=== PATIENT | female | born 1940 ===

== ENCOUNTER 2016-08-26 09:37 | Observation (INO) | payer MEDICARE, OTHER ==
[2016-08-26] MEDS ORDERED: Sodium Chloride 0.9% 1,000 ML IV ONE (10:03)
--- NOTE | 2016-08-26 10:07 | C.PDOC ---
History Of Present Illness Patient is a 75 y/o female, whose PMHx includes vertigo, asthma, and hypothyroidism, that presents to the ED for evaluation of dizziness for the last 25 days. Patient also reports 1 episode of syncope this morning. As per , patient was comfortably sitting on the chair, eating breakfast when she suddenly became unconscious for a few minutes. denies any fall, or injury, and states he immediately called EMS. Patient is able to recall details leading up to the syncope. Otherwise, patient denies any headache, extremity weakness/numbness, visual changes, chest pain, shortness of breath, or any other associated symptoms at this time. Time Seen by Provider: 08/26/16 10:01 Chief Complaint (Nursing): Syncope History Per: Patient History/Exam Limitations: no limitations Onset/Duration Of Symptoms: Days (25) Current Symptoms Are (Timing): Still Present Activity At Onset Of Symptoms: Sitting Fall Associated With With Symptoms: No Severity: None Pain Scale Rating Of: 0 Recent travel outside of the [place]: No Additional History Per: Family () Past Medical History Reviewed: Historical Data, Nursing Documentation, Vital Signs Vital Signs: Last Vital Signs Temp 98.1 F 08/26/16 09:54 Pulse 88 08/26/16 09:54 Resp 23 08/26/16 09:54 BP 139/75 08/26/16 09:54 Pulse Ox 96 08/26/16 11:55 - Medical History PMH: Asthma, Hypothyroidism Family History: States: Unknown Family Hx - Social History Hx Tobacco Use: No Hx Alcohol Use: No Hx Substance Use: No - Immunization History Hx Influenza Vaccination: No Hx Pneumococcal Vaccination: No Review Of Systems Except As Marked, All Systems Reviewed And Found Negative. Constitutional: Negative for: Fever, Chills Eyes: Negative for: Vision Change Cardiovascular: Negative for: Chest Pain, Palpitations Respiratory: Negative for: Shortness of Breath Neurological: Positive for: Dizziness. Negative for: Weakness, Numbness, Headache Physical Exam - Physical Exam Appears: Non-toxic, No Acute Distress Skin: Normal Color, Warm, Dry Head: Atraumatic, Normacephalic Eye(s): bilateral: Normal Inspection, PERRL, EOMI, Other (no nystagmus) Throat: Normal, No Erythema, No Exudate Neck: Normal ROM, Supple Chest: Symmetrical, No Tenderness Cardiovascular: Rhythm Regular Respiratory: Normal Breath Sounds, No Rales, No Rhonchi, No Wheezing Gastrointestinal/Abdominal: Soft, No Tenderness Extremity: Bilateral: Normal Color And Temperature, Normal ROM Pulses: Left Radial: Normal, Right Radial: Normal Neurological/Psych: Oriented x3, Normal Speech, Normal Cognition, Normal Motor ( normal strength), Normal Sensation, Normal Reflexes, Other (no sensory deficits , neuro intact) ED Course And Treatment - Laboratory Results Result Diagrams: 08/26/16 10:22 08/26/16 10:22 Lab Interpretation: No Acute Changes ECG: Interpreted By Me, Viewed By Me (and DR Rubio) ECG Rhythm: Sinus Rhythm ECG Interpretation: No Acute Changes Interpretation Of ECG: NS at 91 bpm with slight left axis deviation, no ischemic changes Rate From EC O2 Sat by Pulse Oximetry: 96 (on RA) Pulse Ox Interpretation: Normal - CT Scan/US Head CT Other Rad Studies (CT/US): Read By Radiologist, Radiology Report Reviewed CT/US Interpretation: FINDINGS: HEMORRHAGE: No acute parenchymal, subarachnoid or extra-axial hemorrhage. . BRAIN: Mild chronic periventricular white matter ischemic changes most pronounced and conspicuous on the left compared to the right. In addition, there are scattered chronic appearing subcortical ischemic changes as well. VENTRICLES: Mild generalized volume loss. CALVARIUM: No acute calvarial fractures. PARANASAL SINUSES: Mild mucoperiosteal inflammatory changes noted within the ethmoid air complex extending superiorly into the inferior aspect of the frontal sinus. Old bilateral nasal bone fracture deformities are present. MASTOID AIR CELLS: There is partial opacification of several left inferior mastoid air cells. OTHER FINDINGS: None. IMPRESSION: No acute intracranial hemorrhage. Mild chronic periventricular as well as scattered subcortical white matter ischemic changes. Mild generalized volume loss. Progress Note: Labs, Head CT, EKG ordered and reviewed. Patient was treated with IV fluids, and Reglan IVP. Medical Decision Making Medical Decision Makin y.o female with dizziness and syncope Labs and EKG reviewed CT shows no acute intracranial hemorrhage. Patient reevaluated and remains afebrile in no acute distress. She reports no change in her symptoms, she feels dizzy with certain movements and now feels weak to walk. Will call primary for observation admission. Dr Lawrence admits to hospitalist, will page them. [id number] Hernandez who accepts patient to service and requests orthostatic vital signs. Disposition - Disposition Disposition: HOSPITALIZED Disposition Time: 11:54 Condition: FAIR - POA Present On Arrival: None - Clinical Impression Clinical Impression: Vertigo, Syncope - PA / COUNCILPERSON / Resident Statement MD/DO has reviewed & agrees with the documentation as recorded. - Scribe Statement The provider has reviewed the documentation as recorded by the Scribe Duane Marie All medical record entries made by the Karinaibe were at my direction and personally dictated by me. I have reviewed the chart and agree that the record accurately reflects my personal performance of the history, physical exam, medical decision making, and the department course for this patient. I have also personally directed, reviewed, and agree with the discharge instructions and disposition. Decision To Admit - Pt Status Changed To: Hospital Disposition Of: Observation - . Bed Request Type: Telemetry Admitting Physician: Kayla Hernandez Patient Diagnosis: Vertigo, Syncope
[2016-08-26] MEDS ORDERED: Sodium Chloride 0.9% 1,000 ML ONE (10:10)
[2016-08-26 10:25] LABS: BASO # 0.1 K/uL (0.0-0.2); BASO % 1.1 % (0.0-2.0); EOS # 0.4 K/uL (0.0-0.7); EOS % 6.2 % (0.0-4.0); HEMATOCRIT 39.8 % (34.0-47.0); LYMPH # 1.7 K/uL (1.0-4.3); LYMPH % 27.7 % (20.0-40.0); MEAN CORPUSCULAR HEMOGLOBIN 30.6 pg (27.0-31.0); MEAN CORPUSCULAR HGB CONC 33.7 g/dL (33.0-37.0); MONO # 0.6 K/uL (0.0-0.8); MONO % 9.3 % (0.0-10.0); RED CELL DISTRIBUTION WIDTH 14.9 % (11.5-14.5); WHITE BLOOD COUNT 6.3 K/uL (4.8-10.8)
[2016-08-26 10:32] LABS: MEAN CELL VOLUME 90.7 fL (81.0-99.0)
[2016-08-26 10:44] LABS: CHLORIDE 100 mmol/L (98-107); POTASSIUM 4.2 mmol/L (3.6-5.2); SODIUM 142 mmol/L (132-148)
[2016-08-26 10:46] LABS: GFR AFRICAN-AMERICAN > 60
[2016-08-26 10:47] LABS: ALB/GLOB RATIO 1.2 (1.0-2.1); ALKALINE PHOSPHATASE 75 U/L (38-126); ALT/SGPT 25 U/L (9-52); AST/SGOT 28 U/L (14-36); BILIRUBIN,TOTAL 0.7 mg/dL (0.2-1.3); BLOOD UREA NITROGEN 10 mg/dL (7-17); CALCIUM 8.7 mg/dl (8.6-10.4); CARBON DIOXIDE 27 mmol/L (22-30); GLUCOSE,RANDOM 78 mg/dL (65-105); INR 1.1; TOTAL PROTEIN 7.3 g/dL (6.3-8.3)
[2016-08-26 11:19] LABS: THYROID STIMULATING HORMONE 3.53 mIU/L (0.46-4.68)
--- NOTE | 2016-08-26 11:32 | CT ---
PROCEDURE: CT HEAD WITHOUT CONTRAST. HISTORY: dizziness and syncope COMPARISON: None available. TECHNIQUE: Axial computed tomography images were obtained through the head/brain without intravenous contrast. Radiation dose: Total exam DLP = 870.30 mGy-cm. FINDINGS: HEMORRHAGE: No acute parenchymal, subarachnoid or extra-axial hemorrhage. . BRAIN: Mild chronic periventricular white matter ischemic changes most pronounced and conspicuous on the left compared to the right. In addition, there are scattered chronic appearing subcortical ischemic changes as well VENTRICLES: Mild generalized volume loss. CALVARIUM: No acute calvarial fractures. PARANASAL SINUSES: Mild mucoperiosteal inflammatory changes noted within the ethmoid air complex extending superiorly into the inferior aspect of the frontal sinus. Old bilateral nasal bone fracture deformities are present. MASTOID AIR CELLS: There is partial opacification of several left inferior mastoid air cells. OTHER FINDINGS: None. IMPRESSION: No acute intracranial hemorrhage. Mild chronic periventricular as well as scattered subcortical white matter ischemic changes. Mild generalized volume loss.
[2016-08-26 12:07] LABS: RBC URINE 1 /hpf (0-3); URINE BILIRUBIN NEGATIVE (NEGATIVE); URINE BLOOD NEGATIVE (NEGATIVE); URINE COLOR Straw (YELLOW); URINE GLUCOSE (UA) NORMAL (Normal); URINE KETONE NEGATIVE (NEGATIVE); URINE LEUKOCYTE ESTERASE NEG Leu/uL (Negative); URINE PROTEIN NEGATIVE (NEGATIVE); URINE UROBILINOGEN NORMAL mg/dL (0.2-1.0); WBC URINE 1 /hpf (0-5)
--- NOTE | 2016-08-26 16:54 | RAD ---
HISTORY: dizziness, syncope COMPARISON: No prior. FINDINGS: LUNGS: Moderate elevation right hemidiaphragm possibly due to eventration however subpulmonic effusion with atelectasis of must be excluded. PLEURA: No pneumothorax apparent. CARDIOVASCULAR: Heart size within range of normal. . OSSEOUS STRUCTURES: No significant abnormalities. VISUALIZED UPPER ABDOMEN: Normal. OTHER FINDINGS: None. IMPRESSION: Moderate elevation right hemidiaphragm could be due to a eventration however possibility of subpulmonic effusion and atelectasis should be excluded. Mild left basilar atelectasis
--- NOTE | 2016-08-26 16:54 | CP.PCM.HP ---
<Khadar Mata - Last Filed: 08/26/16 22:46> History of Present Illness - History of Present Illness History of Present Illness: 75F with pmh of vertigo and asthma presents to the ED for a syncopal episode that occurred earlier when she was eating breakfast with her around 10am. After she had prepared the meal, she sat down. According to her , her head went down and she lost consciousness. The next thing she remembers was being evaluated by EMS. She was then brought to the hospital. Her vertigo was first diagnosed 4 years ago and she has recently been having more episodes. She had her second episode approximately 1 year ago, her third 22 days ago and currently her fourth episode today. She has been prescribed Meclizine with relief. Currently, she complains of mild dizziness, blurry vision, and pain behind her eyes. She denies fever, chills, chest pain, difficulty breathing, nausea, vomiting, diarrhea. PMD: Evelyn PMH: Vertigo and Asthma FH: sig for heart disease SH: -lives with -sick 1 week ago -Tob: denies -Alc: denies -Drugs: denies Present on Admission - Present on Admission Any Indicators Present on Admission: No Review of Systems - Constitutional Constitutional: Headache. absent: Fever - EENT Eyes: Blurred Vision, Change in Vision Ears: absent: Decreased Hearing - Cardiovascular Cardiovascular: absent: Chest Pain, Chest Pain at Rest, Dyspnea - Respiratory Respiratory: absent: Dyspnea, Hemoptysis, Dyspnea on Exertion - Gastrointestinal Gastrointestinal: absent: Abdominal Pain, Diarrhea, Nausea, Vomiting - Genitourinary Genitourinary: absent: Dysuria, Hematuria - Musculoskeletal Musculoskeletal: Back Pain, Neck Pain - Integumentary Integumentary: absent: Rash, Wounds - Neurological Neurological: Dizziness, Headaches Past Patient History - Past Medical History & Family History Past Medical History?: Yes Pertinent Family History: sig for heart disease - Past Social History Smoking Status: Never Smoked Chewing Tobacco Use: No Cigar Use: No Alcohol: None Drugs: Denies Home Situation {Lives}: With Family - CARDIAC Hx Cardiac Disorders: No - PULMONARY Hx Respiratory Disorders: Yes Hx Asthma: Yes - NEUROLOGICAL Hx Neurological Disorder: Yes Hx Vertigo: Yes Other/Comment: Goes to ENT Dr. Savage has tilt table test done. - HEENT Hx HEENT Problems: Yes Other/Comment: Vertigo - RENAL Hx Chronic Kidney Disease: No - ENDOCRINE/METABOLIC Hx Endocrine Disorders: Yes Hx Hypothyroidism: Yes - HEMATOLOGICAL/ONCOLOGICAL Hx Blood Disorders: No - INTEGUMENTARY Hx Dermatological Problems: No - MUSCULOSKELETAL/RHEUMATOLOGICAL Hx Musculoskeletal Disorders: No Hx Falls: No - GASTROINTESTINAL Hx Gastrointestinal Disorders: No - GENITOURINARY/GYNECOLOGICAL Hx Genitourinary Disorders: No - PSYCHIATRIC Hx Psychophysiologic Disorder: No Hx Substance Use: No - SURGICAL HISTORY Hx Surgeries: Yes Hx Cholecystectomy: Yes - ANESTHESIA Hx Anesthesia: Yes Hx Anesthesia Reactions: No Meds Allergies/Adverse Reactions: Allergies Allergy/AdvReac Type Severity Reaction Status Date / Time Unobtainable Allergy Unverified 07/31/14 09:04 Physical Exam - Constitutional Appears: Non-toxic, No Acute Distress - Head Exam Head Exam: ATRAUMATIC, NORMOCEPHALIC - Eye Exam Eye Exam: EOMI Pupil Exam: NORMAL ACCOMODATION, PERRL - ENT Exam ENT Exam: Mucous Membranes Moist - Neck Exam Neck exam: Positive for: Normal Inspection - Respiratory Exam Respiratory Exam: Wheezes (ins/exp), NORMAL BREATHING PATTERN - Cardiovascular Exam Cardiovascular Exam: REGULAR RHYTHM, RRR, +S1, +S2. absent: JVD - GI/Abdominal Exam GI & Abdominal Exam: Normal Bowel Sounds, Soft. absent: Tenderness - Extremities Exam Extremities exam: Positive for: full ROM, normal inspection. Negative for: joint swelling - Back Exam Back exam: NORMAL INSPECTION. absent: CVA tenderness (L), CVA tenderness (R), paraspinal tenderness, rash noted - Neurological Exam Neurological exam: Alert, CN II-XII Intact, Oriented x3 - Psychiatric Exam Psychiatric exam: Normal Affect, Normal Mood - Skin Skin Exam: Dry, Intact, Normal Color, Warm Results - Vital Signs Recent Vital Signs: Last Vital Signs Temp 98.0 F 08/26/16 16:00 Pulse 82 08/26/16 16:00 Resp 20 08/26/16 16:00 BP 124/72 08/26/16 16:00 Pulse Ox 96 08/26/16 16:00 - Labs Result Diagrams: 08/26/16 10:22 08/26/16 10:22 Assessment & Plan - Assessment and Plan (Free Text) Assessment: 75F with pmh presents complaining of syncope and headache. Cardiac vs vaso- vagal vs hypoglycemic. Plan: Syncope -Orthostatics -Echocardiogram -Doppler Carotid Stenosis -Monitor Sugars -IV NS 75ml/hr PPX -GI pepcid -DVT SCD's Dispo Reg diet PT Eval - Date & Time Date: 08/26/16 Time: 05:15 <Juve Najera - Last Filed: 09/18/16 22:24> Results - Vital Signs Recent Vital Signs: Last Vital Signs Temp 97.3 F L 08/29/16 12:04 Pulse 91 H 08/29/16 12:35 Resp 20 08/29/16 07:45 BP 137/75 08/29/16 07:45 Pulse Ox 95 08/29/16 07:45 - Labs Result Diagrams: 08/29/16 06:00 08/29/16 06:00 Attending/Attestation - Attestation I have personally seen and examined this patient.: Yes I have fully participated in the care of the patient.: Yes I have reviewed all pertinent clinical information: Yes
[2016-08-26] MEDS: Sodium Chloride 0.9% 1,000 ML IV SCH (18:48)
[2016-08-27] MEDS ORDERED: Albuterol-Ipratrop 3 mg / 0.5 (3 ml) UD INH PRN (07:51)
[2016-08-27 08:24] LABS: BASO # 0.1 K/uL (0.0-0.2); BASO % 1.1 % (0.0-2.0); EOS # 0.5 K/uL (0.0-0.7); EOS % 7.5 % (0.0-4.0); HEMATOCRIT 39.4 % (34.0-47.0); LYMPH # 2.3 K/uL (1.0-4.3); LYMPH % 36.9 % (20.0-40.0); MEAN CELL VOLUME 91.2 fL (81.0-99.0); MEAN CORPUSCULAR HEMOGLOBIN 31.1 pg (27.0-31.0); MEAN CORPUSCULAR HGB CONC 34.1 g/dL (33.0-37.0); MEAN PLATELET VOLUME 7.9 fL (7.2-11.7); MONO # 0.6 K/uL (0.0-0.8); MONO % 9.5 % (0.0-10.0); NRBC % 0.5 % (0.0-2.0); RED CELL DISTRIBUTION WIDTH 14.6 % (11.5-14.5); WHITE BLOOD COUNT 6.2 K/uL (4.8-10.8)
[2016-08-27 08:31] LABS: CHLORIDE 100 mmol/L (98-107); SODIUM 140 mmol/L (132-148)
[2016-08-27 08:33] LABS: ALB/GLOB RATIO 1.1 (1.0-2.1); ALKALINE PHOSPHATASE 71 U/L (38-126); ALT/SGPT 19 U/L (9-52); AST/SGOT 24 U/L (14-36); BILIRUBIN,TOTAL 0.7 mg/dL (0.2-1.3); BLOOD UREA NITROGEN 10 mg/dL (7-17); CARBON DIOXIDE 26 mmol/L (22-30); GFR AFRICAN-AMERICAN > 60; GLUCOSE,RANDOM 68 mg/dL (65-105); PHOSPHOROUS 3.8 mg/dL (2.5-4.5)
[2016-08-27] MEDS: Sodium Chloride 0.9% 1,000 ML IV SCH ×2 (10:21→21:31)
--- NOTE | 2016-08-27 14:17 | CP.PCM.PN ---
<TheeLaverne - Last Filed: 08/27/16 14:15> Subjective - Date & Time of Evaluation Date of Evaluation: 08/27/16 Time of Evaluation: 08:15 - Subjective Subjective: PGY [address] Najera: Patient seen and examined at bedside this morning. She denied dizziness but stated that her head felt heavy. She states that she has had vertigo many time in the past 4 years. She states that this recent episode does not feel like her "regular vertigo". She denies all other complaints such as N/V, changes in vision, chest pain, SOB, abdominal pain, urinary complaints, numbness.tingling, weakness. Objective - Vital Signs/Intake and Output Vital Signs (last 24 hours): Temp Pulse Resp BP Pulse Ox 98.4 F 83 18 137/79 95 08/27/16 07:45 08/27/16 11:55 08/27/16 07:45 08/27/16 11:55 08/27/16 11:55 Intake and Output: 08/27/16 08/27/16 06:59 18:59 Intake Total 375 Output Total 200 Balance 175 - Medications Medications: Current Medications Acetaminophen (Tylenol 325mg Tab) 650 mg PO Q6 PRN PRN Reason: Pain, moderate (4-7) Last Admin: 08/26/16 18:06 Dose: 650 mg Albuterol/Ipratropium (Duoneb 3 Mg/0.5 Mg (3 Ml) Ud) 3 ml INH RQ6 PRN PRN Reason: Shortness of Breath Famotidine (Pepcid) 20 mg PO DAILY [facility] Last Admin: 08/27/16 10:20 Dose: 20 mg Heparin Sodium (Porcine) (Heparin) 5,000 units SC Q12 [facility] Last Admin: 08/27/16 10:20 Dose: 5,000 units Sodium Chloride (Sodium Chloride 0.9%) 1,000 mls @ 75 mls/hr IV .[id number] [facility] Last Admin: 08/27/16 10:21 Dose: 75 mls/hr Influenza Virus Vaccine (Afluria) 45 mcg IM .ONCE ONE Stop: 08/28/16 16:21 Fluticasone/Salmeterol (Advair Diskus 500/50) 1 puff INH RQ12 [facility] - Labs Labs: 08/27/16 07:52 08/27/16 07:52 PT 12.4 SECONDS (9.7-12.2) H 08/26/16 10:22 INR 1.1 08/26/16 10:22 APTT 34 SECONDS (21-34) 08/26/16 10:22 - Constitutional Appears: Non-toxic, No Acute Distress - Head Exam Head Exam: ATRAUMATIC, NORMAL INSPECTION - Eye Exam Eye Exam: EOMI, PERRL Pupil Exam: absent: NORMAL ACCOMODATION - ENT Exam ENT Exam: Mucous Membranes Moist - Neck Exam Neck Exam: absent: Full ROM - Respiratory Exam Respiratory Exam: Clear to Ausculation Bilateral, NORMAL BREATHING PATTERN. absent: Respiratory Distress - Cardiovascular Exam Cardiovascular Exam: REGULAR RHYTHM, +S1, +S2 - GI/Abdominal Exam GI & Abdominal Exam: Soft, Normal Bowel Sounds. absent: Distended, Firm, Guarding, Tenderness - Extremities Exam Extremities Exam: Calf Tenderness, Normal Inspection. absent: Full ROM, Pedal Edema - Back Exam Back Exam: NORMAL INSPECTION. absent: CVA tenderness (L), CVA tenderness (R), paraspinal tenderness - Neurological Exam Neurological Exam: Alert, Awake, CN II-XII Intact, Oriented x3 Neuro motor strength exam: Left Upper Extremity: 5, Right Upper Extremity: 5, Left Lower Extremity: 5, Right Lower Extremity: 5 Additional comments: No changes in vision changes, no focal deficits, no weakness - Psychiatric Exam Psychiatric exam: Normal Affect, Normal Mood - Skin Skin Exam: Dry, Intact, Normal Color, Warm Assessment and Plan - Assessment and Plan (Free Text) Assessment: Assessment: 75F with pmh presents complaining of syncope and headache. Cardiac vs vaso- vagal vs hypoglycemic. Plan: Syncope - Orthostatics: lying 163/77, sitting 141/73, standing 140/82 - f/u Echocardiogram - f/u Doppler Carotid Stenosis - f/u MRI brain w/wo contrast - IV NS 75ml/hr - Tylenol prn headache - On telemetry - CT head negative for acute pathology/bleed - UA wnl - Trop negative - EKG NSR at 91 bpm - f/u am labs Vertigo - f/u Neurology Dr. Cox, help appreciated Asthma - Duonebs prn SOB - Continue home med Advair 500/50 1 puff INH Q12 PPX - Pepcid 20mg PO daily - Heparin 5000 U SC Q12 - NS at 75 cc/hour - PT - Reg diet <Juve Najera - Last Filed: 09/18/16 22:29> Objective - Vital Signs/Intake and Output Vital Signs (last 24 hours): Temp Pulse Resp BP Pulse Ox 97.3 F L 91 H 20 137/75 95 08/29/16 12:04 08/29/16 12:35 08/29/16 07:45 08/29/16 07:45 08/29/16 07:45 - Labs Labs: 08/29/16 06:00 08/29/16 06:00 PT 12.4 SECONDS (9.7-12.2) H 08/26/16 10:22 INR 1.1 08/26/16 10:22 APTT 34 SECONDS (21-34) 08/26/16 10:22 Attending/Attestation - Attestation I have personally seen and examined this patient.: Yes I have fully participated in the care of the patient.: Yes I have reviewed all pertinent clinical information, including history, physical exam and plan: Yes
[2016-08-27 16:24] VITALS: RESP 20
[2016-08-27] MEDS ORDERED: Gadodiamide 287 MG/ML VIAL (15ML) IV ONE (18:05)
[2016-08-27] MEDS: Fluticasone-Salmeterol 500-50mcg Diskus INH SCH (19:16)
[2016-08-28] MEDS: Sodium Chloride 0.9% 1,000 ML IV SCH (02:35)
[2016-08-28 08:01] LABS: BASO # 0.1 K/uL (0.0-0.2); BASO % 1.2 % (0.0-2.0); EOS # 0.4 K/uL (0.0-0.7); EOS % 7.2 % (0.0-4.0); HEMATOCRIT 39.4 % (34.0-47.0); LYMPH # 2.4 K/uL (1.0-4.3); LYMPH % 39.1 % (20.0-40.0); MEAN CELL VOLUME 91.4 fL (81.0-99.0); MEAN CORPUSCULAR HEMOGLOBIN 30.6 pg (27.0-31.0); MEAN CORPUSCULAR HGB CONC 33.4 g/dL (33.0-37.0); MEAN PLATELET VOLUME 7.4 fL (7.2-11.7); MONO # 0.5 K/uL (0.0-0.8); MONO % 8.4 % (0.0-10.0); RED CELL DISTRIBUTION WIDTH 14.9 % (11.5-14.5); WHITE BLOOD COUNT 6.1 K/uL (4.8-10.8)
[2016-08-28 08:15] LABS: CHLORIDE 101 mmol/L (98-107)
[2016-08-28 08:16] LABS: SODIUM 141 mmol/L (132-148)
[2016-08-28 08:17] LABS: POTASSIUM 3.7 mmol/L (3.6-5.2)
[2016-08-28 08:18] LABS: CARBON DIOXIDE 27 mmol/L (22-30); GFR AFRICAN-AMERICAN > 60
[2016-08-28 08:19] LABS: ALB/GLOB RATIO 1.2 (1.0-2.1); ALKALINE PHOSPHATASE 80 U/L (38-126); ALT/SGPT 21 U/L (9-52); AST/SGOT 23 U/L (14-36); BILIRUBIN,TOTAL 0.7 mg/dL (0.2-1.3); BLOOD UREA NITROGEN 10 mg/dL (7-17); CALCIUM 8.4 mg/dl (8.6-10.4); GLUCOSE,RANDOM 73 mg/dL (65-105); PHOSPHOROUS 3.9 mg/dL (2.5-4.5)
[2016-08-28] MEDS: Fluticasone-Salmeterol 500-50mcg Diskus INH SCH ×2 (10:28→20:45)
--- NOTE | 2016-08-28 12:52 | VASCLAB ---
PROCEDURE: HISTORY: syncope COMPARISON: None available. TECHNIQUE: Grayscale and duplex Doppler evaluation of the cervical carotid and vertebral arteries were performed. The common carotid, carotid bifurcations and cervical Internal Carotid Artery (ICA) and proximal External Carotid Artery (ECA) were evaluated. The vertebral arteries were evaluated for gross patency and flow direction. Report prepared by Emil Saenz, BS, RVT FINDINGS: RIGHT CAROTID ARTERIES: 1. Common Carotid Artery: No significant focal plaque formation of the right common carotid artery. Maximum Peak Systolic velocity: 60 cm/sec: End-diastolic velocity 16 cm/sec. 2. Carotid Bifurcation: plaque formation. Maximum Peak Systolic velocity: 48 cm/sec: End-diastolic velocity 12 cm/sec. 3. Internal Carotid Artery: Plaque description: 3.1. Proximal Segment: Peak systolic velocity 59 cm/sec: End-diastolic velocity 19 cm/sec - % stenosis 0-15% 3.2. Middle Segment: Peak systolic velocity 92 cm/sec: End-diastolic velocity 33 cm/sec - % stenosis 0-15% 3.3. Distal Segment: Peak systolic velocity 100 cm/sec: End-diastolic velocity 33 cm/sec - % stenosis 0-15% 4. External Carotid Artery: No significant focal plaque formation. Peak systolic velocity 71 cm/sec 5. ICA/CCA Ratio: 1.7 LEFT CAROTID ARTERIES: 1. Common Carotid Artery: No significant focal plaque formation of the left common carotid artery. Maximum Peak Systolic velocity: 63 cm/sec: End-diastolic velocity 18 cm/sec. 2. Carotid Bifurcation: plaque formation. Maximum Peak Systolic velocity: 63 cm/sec: End-diastolic velocity 12 cm/sec. 3. Internal Carotid Artery: Plaque description: 3.1. Proximal Segment: Peak systolic velocity 57 cm/sec: End-diastolic velocity 18 cm/sec - % stenosis 0-15% 3.2. Middle Segment: Peak systolic velocity 82 cm/sec: End-diastolic velocity 26 cm/sec - % stenosis 0-15% 3.3. Distal Segment: Peak systolic velocity 56 cm/sec: End-diastolic velocity 19 cm/sec - % stenosis 0-15% 4. External Carotid Artery: No significant focal plaque formation. Peak systolic velocity 63 cm/sec 5. ICA/CCA Ratio: 1.3 VERTEBRAL ARTERIES: 1. Right Vertebral Artery: The right vertebral artery flow direction is antegrade. 2. Left Vertebral Artery: The left vertebral artery flow direction is antegrade. OTHER FINDINGS: 1. Right Brachial Blood pressure: 148 mmHg. 2. Left Brachial Blood pressure: 150 mmHg. IMPRESSION: RIGHT: Duplex scan does not suggest hemodynamically significant stenosis of the right extracranial carotid arteries. LEFT: Duplex scan does not suggest hemodynamically significant stenosis of the left extracranial carotid arteries.
--- NOTE | 2016-08-28 13:46 | MRI ---
PROCEDURE: MRI BRAIN WITH AND WITHOUT CONTRAST HISTORY: Vertigo, r/u cerebellar stroke COMPARISON: Noncontrast head CT from 08/26/2016 and MRI brain without contrast from 09/09/2014 TECHNIQUE: Multiplanar, multisequence MR images of the brain were obtained with and without intravenous contrast enhancement. 12 mL Omniscan was injected intravenously. FINDINGS: HEMORRHAGE: None DWI: No evidence of an acute or early subacute infarction. BRAIN PARENCHYMA: There are moderate chronic microangiopathic changes. There is no mass, mass effect or abnormal extra-axial fluid collection. Punctate T1 hyperintense areas in the right very frontal white matter likely represent slow flow in branches of development of venous malformation. The midline sagittal structures are normal. ENHANCEMENT: There is a large developmental venous malformation in the left paramedian frontal lobe draining into the superior sagittal sinus. There is no abnormal parenchymal or leptomeningeal enhancement. VENTRICLES: There is mild age-related global parenchymal volume loss and proportionate enlargement of the ventricles and cortical sulci. The left lateral ventricle is slightly larger than the right, an anatomic variant. CRANIUM: There is normal bone marrow signal pattern. ORBITS: Grossly unremarkable. PARANASAL SINUSES/MASTOIDS: There is mild mucosal thickening in the paranasal sinuses. There is a moderate left mastoid effusion. VASCULAR SYSTEM: There are normal signal voids in the larger intracranial arteries. OTHER FINDINGS: None . IMPRESSION: 1. No acute intracranial abnormality. 2. 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 3. Moderate chronic microangiopathic changes and mild age-related global parenchymal volume loss. A preliminary report was provided by [employer].
--- NOTE | 2016-08-28 14:38 | CP.PCM.PN ---
<Laverne Kingston - Last Filed: 08/28/16 17:02> Subjective - Date & Time of Evaluation Date of Evaluation: 08/28/16 Time of Evaluation: 08:30 - Subjective Subjective: PGY [address] Najera: Patient seen and examined at bedside this morning. She denied dizziness but stated that her head felt "hot". She denied headahe. She denies all other complaints such as N/V, changes in vision, chest pain, SOB, abdominal pain, urinary complaints, numbness/tingling, weakness. Objective - Vital Signs/Intake and Output Vital Signs (last 24 hours): Temp Pulse Resp BP Pulse Ox 97.7 F 71 20 148/73 95 08/28/16 07:14 08/28/16 12:46 08/28/16 07:14 08/28/16 07:14 08/28/16 07:14 Intake and Output: 08/28/16 08/28/16 06:59 18:59 Intake Total 1620 720 Output Total 150 Balance 1620 570 - Medications Medications: Current Medications Acetaminophen (Tylenol 325mg Tab) 650 mg PO Q6 PRN PRN Reason: Pain, moderate (4-7) Last Admin: 08/27/16 21:28 Dose: 650 mg Albuterol/Ipratropium (Duoneb 3 Mg/0.5 Mg (3 Ml) Ud) 3 ml INH RQ6 PRN PRN Reason: Shortness of Breath Last Admin: 08/27/16 19:17 Dose: 3 ml Clopidogrel Bisulfate (Plavix) 75 mg PO DAILY [facility] Last Admin: 08/28/16 09:35 Dose: 75 mg Famotidine (Pepcid) 20 mg PO DAILY [facility] Last Admin: 08/28/16 10:16 Dose: 20 mg Heparin Sodium (Porcine) (Heparin) 5,000 units SC Q12 [facility] Last Admin: 08/28/16 09:35 Dose: 5,000 units Sodium Chloride (Sodium Chloride 0.9%) 1,000 mls @ 75 mls/hr IV .[id number] [facility] Last Admin: 08/28/16 02:35 Dose: 75 mls/hr Influenza Virus Vaccine (Afluria) 45 mcg IM .ONCE ONE Stop: 08/28/16 16:21 Fluticasone/Salmeterol (Advair Diskus 500/50) 1 puff INH RQ12 [facility] Last Admin: 08/28/16 10:28 Dose: 1 puff - Labs Labs: 08/28/16 07:49 08/28/16 07:49 PT 12.4 SECONDS (9.7-12.2) H 08/26/16 10:22 INR 1.1 08/26/16 10:22 APTT 34 SECONDS (21-34) 08/26/16 10:22 - Constitutional Appears: Non-toxic, No Acute Distress - Head Exam Head Exam: ATRAUMATIC, NORMAL INSPECTION - Eye Exam Eye Exam: EOMI, Normal appearance, PERRL Pupil Exam: NORMAL ACCOMODATION - ENT Exam ENT Exam: Mucous Membranes Moist - Respiratory Exam Respiratory Exam: Clear to Ausculation Bilateral, NORMAL BREATHING PATTERN. absent: Accessory Muscle Use, Rales, Rhonchi, Wheezes, Respiratory Distress - Cardiovascular Exam Cardiovascular Exam: REGULAR RHYTHM, +S1, +S2. absent: Murmur - GI/Abdominal Exam GI & Abdominal Exam: Soft, Normal Bowel Sounds. absent: Distended, Firm, Guarding, Tenderness - Extremities Exam Extremities Exam: Normal Inspection. absent: Calf Tenderness, Pedal Edema - Back Exam Back Exam: NORMAL INSPECTION. absent: CVA tenderness (L), CVA tenderness (R), paraspinal tenderness - Neurological Exam Neurological Exam: Alert, Awake, CN II-XII Intact, Oriented x3 Neuro motor strength exam: Left Upper Extremity: 5, Right Upper Extremity: 5, Left Lower Extremity: 5, Right Lower Extremity: 5 - Psychiatric Exam Psychiatric exam: Normal Affect, Normal Mood - Skin Skin Exam: Dry, Intact, Normal Color, Warm Assessment and Plan - Assessment and Plan (Free Text) Assessment: Syncope - Orthostatics: lying 163/77, sitting 141/73, standing 140/82 - f/u Echocardiogram - Carotid Doppler Study- no disease - MRI brain - No acute intracranial abnormality. 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 Moderate chronic microangiophathic changes and mild age related global parenchymal volume loss. - IV NS 75ml/hr - Tylenol prn headache - On telemetry - CT head negative for acute pathology/bleed - UA wnl - Trop negative - EKG NSR at 91 bpm - f/u EEG - f/u am labs Vertigo - f/u Neurology Dr. Kenny, help appreciated - f/u recs Added Plavix 75 mg PO daily Asthma - Duonebs prn SOB - Continue home med Advair 500/50 1 puff INH Q12 PPX - Pepcid 20mg PO daily - Heparin 5000 U SC Q12 - PT - Reg diet <DaniaJuve - Last Filed: 09/18/16 22:35> Objective - Vital Signs/Intake and Output Vital Signs (last 24 hours): Temp Pulse Resp BP Pulse Ox 97.3 F L 91 H 20 137/75 95 08/29/16 12:04 08/29/16 12:35 08/29/16 07:45 08/29/16 07:45 08/29/16 07:45 - Labs Labs: 08/29/16 06:00 08/29/16 06:00 PT 12.4 SECONDS (9.7-12.2) H 08/26/16 10:22 INR 1.1 08/26/16 10:22 APTT 34 SECONDS (21-34) 08/26/16 10:22 Attending/Attestation - Attestation I have personally seen and examined this patient.: Yes I have fully participated in the care of the patient.: Yes I have reviewed all pertinent clinical information, including history, physical exam and plan: Yes
[2016-08-28] MEDS ORDERED: Influenza Virus Vaccine 45 mcg/0.5 ml Syr IM ONE (16:20)
[2016-08-29 06:36] LABS: CHLORIDE 101 mmol/L (98-107); SODIUM 141 mmol/L (132-148)
[2016-08-29 06:38] LABS: BILIRUBIN,TOTAL 0.5 mg/dL (0.2-1.3); CARBON DIOXIDE 27 mmol/L (22-30); GFR AFRICAN-AMERICAN > 60
[2016-08-29 06:39] LABS: ALB/GLOB RATIO 1.2 (1.0-2.1); ALKALINE PHOSPHATASE 92 U/L (38-126); ALT/SGPT 23 U/L (9-52); AST/SGOT 25 U/L (14-36); BLOOD UREA NITROGEN 13 mg/dL (7-17); CALCIUM 8.9 mg/dl (8.6-10.4); GLUCOSE,RANDOM 76 mg/dL (65-105); PHOSPHOROUS 4.3 mg/dL (2.5-4.5); TOTAL PROTEIN 7.2 g/dL (6.3-8.3)
[2016-08-29 06:47] LABS: BASO # 0.1 K/uL (0.0-0.2); BASO % 1.1 % (0.0-2.0); EOS # 0.4 K/uL (0.0-0.7); EOS % 6.4 % (0.0-4.0); HEMATOCRIT 40.8 % (34.0-47.0); LYMPH # 2.5 K/uL (1.0-4.3); LYMPH % 35.5 % (20.0-40.0); MEAN CELL VOLUME 90.7 fL (81.0-99.0); MEAN CORPUSCULAR HEMOGLOBIN 29.9 pg (27.0-31.0); MEAN PLATELET VOLUME 7.4 fL (7.2-11.7); MONO # 0.6 K/uL (0.0-0.8)
[2016-08-29 07:46] VITALS: BP 137/75; TEMP 97.3; O2SAT 95
--- NOTE | 2016-08-29 08:06 | CARD ---
APPROVED REPORT EKG Measurement Heart [id number] <Conclusion> Normal sinus rhythm Inferior infarct, age undetermined Abnormal ECG
--- NOTE | 2016-08-29 08:35 | CARD ---
APPROVED REPORT EXAM: Two-dimensional and M-mode echocardiogram with Doppler and color Doppler. Other Information Quality : GoodRhythm : NSR INDICATION Dizziness and Vertigo Diastolic Syncope M-Mode DIMENSIONS RVDd1.63 (2.1-3.2cm)Left Atrium (MM)3.68 (2.5-4.0cm) IVSd0.87 (0.7-1.1cm)Aortic Root3.09 (2.2-3.7cm) LVDd4.16 (4.0-5.6cm)Aortic Cusp Exc.1.84 (1.5-2.0cm) PWd1.15 (0.7-1.1cm)FS (%) 30 % LVDs2.92 (2.0-3.8cm)LVEF (%)58 (>50%) Aortic Valve AoV Peak Itwnwzre443.6cm/Jessica Peak GR.9mmHgAI P 1/2 Jvus232xt Mitral Valve MV E Bptmgmrc95.9cm/sMV A Kuybuuyp72.9cm/sE/A ratio1.0 TDI E/Lateral E'0.0E/Medial E'0.0 Tricuspid Valve TR Peak Rxduuakx421ac/sTR Peak Gr.3qsCyGZVY64puPx <Conclusion> Left ventricle: thickness: normal; size: normal; overall ejection fraction: 65%: diastolic filling pressures: normal Mitral valve: annulus: normal: leaflets: normal: excursion: normal; no significant trans-mitral gradient: No significant incompetence: left atrium: normal Aortic valve: leaflets: calcific thickening; excursion: normal; no significant trans-aortic gradient: mild incompetence: aortic root: normal Right sided Structures: Pulmonary valve: normal; no significant incompetence; Tricuspid valve: normal; no significant incompetence: Intra-cardiac hemodynamics: pulmonary systolic pressures: normal; central venous pressures: normal No pericardial effusion
--- NOTE | 2016-08-29 09:39 | CON ---
DATE: 08/28/2016 The patient's room #657, bed B. REASON FOR CONSULTATION: Dizziness. CHIEF COMPLAINT: The patient was brought into [facility] with 22 days history of dizziness with a change in mental status. HISTORY OF PRESENT ILLNESS: The patient is a 75-year-old right-handed female presenting with 22 days history of dizziness. The dizziness is somewhat different than before. Not associating with visual or bulbar dysfunction. Not associated with a headache. On Saturday, she noticed during breakfast time suddenly she could not recall what happened. All she remembers she became blurry and she could not remember what happened after that. It looks like home health aide called 911 and she was brought in to [facility] for further evaluation. PAST MEDICAL HISTORY: Asthma and hypothyroidism. PERSONAL HISTORY: Denies smoking or alcohol use. ALLERGIES: No known allergies. REVIEW OF SYSTEMS: As per H and P. MEDICATIONS: Advair, Afluria, DuoNeb, Pepcid, IV fluids and Tylenol. PHYSICAL EXAMINATION: VITAL SIGNS: Blood pressure 136/70 with mean arterial pressure of 97, respiratory rate 16, temperature afebrile. NECK: Supple. No carotid bruit. HEART: Sounds regular. CHEST: Fair air entry. EXTREMITIES: No edema in legs. NEUROLOGIC EXAMINATION: MENTAL STATUS: She is awake, alert, oriented to person, place, and time. Speech is clear. Naming, repetition, fluency, comprehension all within normal. CRANIAL NERVES: Visual field intact, pupil reactive to light. Extraocular movements are normal. No nystagmus. No facial sensory deficit. V1-V3 all intact. No facial asymmetry. Hearing is normal. Tongue is midline. Good gag. MOTOR: On outstretched hand with eyes closed, no drift noted. Power is symmetric on either side. DEEP TENDON REFLEXES: Biceps, brachioradialis, triceps 2+ Both knees are 1+. Both ankles are absent. Plantars are downgoing. COORDINATION: Aialbk-szfs-qjafkq test is mild dysmetria on both sides. GAIT: She was able to walk normal. Tandem is somewhat fair walking. CONCLUSION: Upon reviewing her history and neurological examination, the patient has been presenting with persistent vertigo. This could be ischemic process centrally versus vestibular neuronopathy. However, her change in mental status and retrograde amnesia is not explainable unless otherwise proved nonconvulsive seizures. WORKUP: CT of the head reviewed by me, no acute pathology noted. MRI of the brain without contrast: Normal. MRI brain with contrast: There is some enhancement of the cortical vein over the left frontal region. I doubt there is any significant importance. BLOOD WORKUP: WBC is 6.2, hemoglobin 13.4, hematocrit 39.4, platelet 265. Sodium 140, potassium 4.0, chloride 100, bicarbonate 26, BUN 10, creatinine 0.5 , GFR more than 60. TSH 3.53. T4 is 0.72. Urinalysis normal. RECOMMENDATIONS: 1. EEG is to be done prior to her discharge. 2. Plavix can be added for her prevention of further stroke process. 3. If patient is stable, patient can be discharged and should have followup with me as outpatient. Junito Cox MD cc: [id number] TT: 08/28/2016 12:38:18 Confirmation # [id number] Dictation # [id number] andrae RAMÍREZ
[2016-08-29] MEDS ORDERED: Pneumococcal 23-Valent Vaccine IM ONE (10:00)
[2016-08-29] MEDS: Fluticasone-Salmeterol 500-50mcg Diskus INH SCH (10:22)
[2016-08-29 12:36] VITALS: PULSE 91
--- NOTE | 2016-08-29 15:40 | CP.PCM.DIS ---
<Laverne Kingston - Last Filed: 08/29/16 15:34> Provider - Provider Date of Admission: 08/28/16 21:17 Attending physician: Juve Najera MD Primary care physician: Evelyn Consults: Destini Cox - Neurology Time Spent in preparation of Discharge (in minutes): 35 Hospital Course - Lab Results Lab Results: Most Recent Lab Values WBC 7.0 K/uL (4.8-10.8) 08/29/16 06:00 RBC 4.50 Mil/uL (3.80-5.20) 08/29/16 06:00 Hgb 13.4 g/dL (11.0-16.0) 08/29/16 06:00 Hct 40.8 % (34.0-47.0) 08/29/16 06:00 MCV 90.7 fL (81.0-99.0) 08/29/16 06:00 MCH 29.9 pg (27.0-31.0) 08/29/16 06:00 MCHC 33.0 g/dL (33.0-37.0) 08/29/16 06:00 RDW 15.0 % (11.5-14.5) H 08/29/16 06:00 Plt Count 255 K/uL (130-400) 08/29/16 06:00 MPV 7.4 fL (7.2-11.7) 08/29/16 06:00 Neut % (Auto) 48.0 % (50.0-75.0) L 08/29/16 06:00 Lymph % (Auto) 35.5 % (20.0-40.0) 08/29/16 06:00 Chase % (Auto) 9.0 % (0.0-10.0) 08/29/16 06:00 Eos % (Auto) 6.4 % (0.0-4.0) H 08/29/16 06:00 Baso % (Auto) 1.1 % (0.0-2.0) 08/29/16 06:00 Neut # 3.3 K/uL (1.8-7.0) 08/29/16 06:00 Lymph # 2.5 K/uL (1.0-4.3) 08/29/16 06:00 Chase # 0.6 K/uL (0.0-0.8) 08/29/16 06:00 Eos # 0.4 K/uL (0.0-0.7) 08/29/16 06:00 Baso # 0.1 K/uL (0.0-0.2) 08/29/16 06:00 PT 12.4 SECONDS (9.7-12.2) H 08/26/16 10:22 INR 1.1 08/26/16 10:22 APTT 34 SECONDS (21-34) 08/26/16 10:22 Sodium 141 mmol/L (132-148) 08/29/16 06:00 Potassium 4.0 mmol/L (3.6-5.2) 08/29/16 06:00 Chloride 101 mmol/L (98-107) 08/29/16 06:00 Carbon Dioxide 27 mmol/L (22-30) 08/29/16 06:00 Anion Gap 18 (10-20) 08/29/16 06:00 BUN 13 mg/dL (7-17) 08/29/16 06:00 Creatinine 0.6 MG/DL (0.7-1.2) L 08/29/16 06:00 Est GFR ( Amer) > 60 08/29/16 06:00 Est GFR (Non-Af Amer) > 60 08/29/16 06:00 Random Glucose 76 mg/dL (65-105) 08/29/16 06:00 Calcium 8.9 mg/dl (8.6-10.4) 08/29/16 06:00 Phosphorus 4.3 mg/dL (2.5-4.5) 08/29/16 06:00 Magnesium 2.0 mg/dL (1.6-2.3) 08/29/16 06:00 Total Bilirubin 0.5 mg/dL (0.2-1.3) 08/29/16 06:00 AST 25 U/L (14-36) 08/29/16 06:00 ALT 23 U/L (9-52) 08/29/16 06:00 Alkaline Phosphatase 92 U/L (38-126) 08/29/16 06:00 Total Creatine Kinase 131 U/L (30-135) 08/26/16 10:22 CK-MB (Mass) 2.71 ng/mL (0.0-3.38) 08/26/16 10:22 Troponin I, Quant < 0.0120 ng/mL (0.00-0.120) 08/26/16 10:22 Total Protein 7.2 g/dL (6.3-8.3) 08/29/16 06:00 Albumin 3.8 g/dL (3.5-5.0) 08/29/16 06:00 Globulin 3.3 gm/dL (2.2-3.9) 08/29/16 06:00 Albumin/Globulin Ratio 1.2 (1.0-2.1) 08/29/16 06:00 Free T4 0.72 ng/dL (0.78-2.19) L 08/26/16 10:22 TSH 3rd Generation 3.53 mIU/L (0.46-4.68) 08/26/16 10:22 Prolactin 14.2 ng/mL (3.0-18.9) 08/27/16 07:52 Urine Color Straw (YELLOW) 08/26/16 11:46 Urine Clarity Clear (Clear) 08/26/16 11:46 Urine pH 6.0 (5.0-8.0) 08/26/16 11:46 Ur Specific [place] 1.010 (1.003-1.030) 08/26/16 11:46 Urine Protein Negative mg/dL (NEGATIVE) 08/26/16 11:46 Urine Glucose (UA) Normal mg/dL (Normal) 08/26/16 11:46 Urine Ketones Negative mg/dL (NEGATIVE) 08/26/16 11:46 Urine Blood Negative (NEGATIVE) 08/26/16 11:46 Urine Nitrate Negative (NEGATIVE) 08/26/16 11:46 Urine Bilirubin Negative (NEGATIVE) 08/26/16 11:46 Urine Urobilinogen Normal mg/dL (0.2-1.0) 08/26/16 11:46 Ur Leukocyte Esterase Neg Andrade/uL (Negative) 08/26/16 11:46 Urine WBC (Auto) 1 /hpf (0-5) 08/26/16 11:46 Urine RBC (Auto) 1 /hpf (0-3) 08/26/16 11:46 Ur Squamous Epith Cells < 1 /hpf (0-5) 08/26/16 11:46 - Hospital Course Hospital Course: On admission: 75F with pmh of vertigo and asthma presents to the ED for a syncopal episode that occurred earlier when she was eating breakfast with her around 10am. After she had prepared the meal, she sat down. According to her , her head went down and she lost consciousness. The next thing she remembers was being evaluated by EMS. She was then brought to the hospital. Her vertigo was first diagnosed 4 years ago and she has recently been having more episodes. She had her second episode approximately 1 year ago, her third 22 days ago and currently her fourth episode today. She has been prescribed Meclizine with relief. Currently, she complains of mild dizziness, blurry vision , and pain behind her eyes. She denies fever, chills, chest pain, difficulty breathing, nausea, vomiting, diarrhea. During hospital stay: Patient was admitted for telemetry monitoring. Neurology was consulted. Orthostatics were wnl. Echocardiogram showed EF 65% with otherwise normal findings. Carotid Doppler Study- no disease. CT scan of the head showed no evidence of bleed. MRI brain showed no acute intracranial abnormality. 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 Moderate chronic microangiophathic changes and mild age related global parenchymal volume loss. Dr. Cox started the patient on Plavix 75 mg PO daily. Cardiac enzymes were normal. Patient was not dizzy while in the hospital. Patient was given breathing treatments and continued on her home advair for her asthma. She was not wheezing during her stay. Patient stable for discharge home per Neurology. Patient is to follow up with Dr. Cox (neurology) for post hospital care and for the results of her EEG. Per Dr. Cox she is to take a new medication: Plavix 75 mg one by mouth daily. Patient is do resume all of her home medications. Patient to to also follow up with her primary care physician Dr. Rivas within one week of discharge. Patient is to return to the emergency room if symptoms return. All instructions explained to the patient and she agrees. Discharge Exam - Head Exam Head Exam: ATRAUMATIC, NORMAL INSPECTION - Eye Exam Eye Exam: EOMI, Normal appearance, PERRL Pupil Exam: NORMAL ACCOMODATION - ENT Exam ENT Exam: Mucous Membranes Moist - Respiratory Exam Respiratory Exam: Clear to PA & Lateral, NORMAL BREATHING PATTERN. absent: Accessory Muscle Use, Chest Wall Tenderness, Respiratory Distress - Cardiovascular Exam Cardiovascular Exam: REGULAR RHYTHM, +S1, +S2 - GI/Abdominal Exam GI & Abdominal Exam: Normal Bowel Sounds, Soft. absent: Distended, Firm, Guarding, Tenderness - Extremities Exam Extremities exam: normal inspection - Back Exam Back exam: NORMAL INSPECTION. absent: CVA tenderness (L), CVA tenderness (R), paraspinal tenderness - Neurological Exam Neurological exam: Alert, CN II-XII Intact, Oriented x3 - Psychiatric Exam Psychiatric exam: Normal Affect, Normal Mood - Skin Skin Exam: Dry, Intact, Normal Color, Warm Discharge Plan - Discharge Medications Prescriptions: Clopidogrel [Plavix] 75 mg PO DAILY #30 tab - Follow Up Plan Condition: FAIR Disposition: HOME/ ROUTINE Instructions: Clopidogrel (By mouth), Vertigo (DC), Syncope (DC) Additional Instructions: Patient stable for discharge home per Neurology. Patient is to follow up with Dr. Cox (neurology) for post hospital care and for the results of her EEG. Per Dr. Cox she is to take a new medication: Plavix 75 mg one by mouth daily. Patient is do resume all of her home medications. Patient to to also follow up with her primary care physician Dr. Rivas within one week of discharge. Patient is to return to the emergency room if symptoms return. All instructions explained to the patient and she agrees. Referrals: Junito Cox MD [Staff Provider] - <Juve Najera - Last Filed: 09/18/16 22:40> Provider - Provider Date of Admission: 08/28/16 21:17 Attending physician: Juve Najera MD Hospital Course - Lab Results Lab Results: Most Recent Lab Values WBC 7.0 K/uL (4.8-10.8) 08/29/16 06:00 RBC 4.50 Mil/uL (3.80-5.20) 08/29/16 06:00 Hgb 13.4 g/dL (11.0-16.0) 08/29/16 06:00 Hct 40.8 % (34.0-47.0) 08/29/16 06:00 MCV 90.7 fL (81.0-99.0) 08/29/16 06:00 MCH 29.9 pg (27.0-31.0) 08/29/16 06:00 MCHC 33.0 g/dL (33.0-37.0) 08/29/16 06:00 RDW 15.0 % (11.5-14.5) H 08/29/16 06:00 Plt Count 255 K/uL (130-400) 08/29/16 06:00 MPV 7.4 fL (7.2-11.7) 08/29/16 06:00 Neut % (Auto) 48.0 % (50.0-75.0) L 08/29/16 06:00 Lymph % (Auto) 35.5 % (20.0-40.0) 08/29/16 06:00 Chase % (Auto) 9.0 % (0.0-10.0) 08/29/16 06:00 Eos % (Auto) 6.4 % (0.0-4.0) H 08/29/16 06:00 Baso % (Auto) 1.1 % (0.0-2.0) 08/29/16 06:00 Neut # 3.3 K/uL (1.8-7.0) 08/29/16 06:00 Lymph # 2.5 K/uL (1.0-4.3) 08/29/16 06:00 Chase # 0.6 K/uL (0.0-0.8) 08/29/16 06:00 Eos # 0.4 K/uL (0.0-0.7) 08/29/16 06:00 Baso # 0.1 K/uL (0.0-0.2) 08/29/16 06:00 PT 12.4 SECONDS (9.7-12.2) H 08/26/16 10:22 INR 1.1 08/26/16 10:22 APTT 34 SECONDS (21-34) 08/26/16 10:22 Sodium 141 mmol/L (132-148) 08/29/16 06:00 Potassium 4.0 mmol/L (3.6-5.2) 08/29/16 06:00 Chloride 101 mmol/L (98-107) 08/29/16 06:00 Carbon Dioxide 27 mmol/L (22-30) 08/29/16 06:00 Anion Gap 18 (10-20) 08/29/16 06:00 BUN 13 mg/dL (7-17) 08/29/16 06:00 Creatinine 0.6 MG/DL (0.7-1.2) L 08/29/16 06:00 Est GFR ( Amer) > 60 08/29/16 06:00 Est GFR (Non-Af Amer) > 60 08/29/16 06:00 Random Glucose 76 mg/dL (65-105) 08/29/16 06:00 Calcium 8.9 mg/dl (8.6-10.4) 08/29/16 06:00 Phosphorus 4.3 mg/dL (2.5-4.5) 08/29/16 06:00 Magnesium 2.0 mg/dL (1.6-2.3) 08/29/16 06:00 Total Bilirubin 0.5 mg/dL (0.2-1.3) 08/29/16 06:00 AST 25 U/L (14-36) 08/29/16 06:00 ALT 23 U/L (9-52) 08/29/16 06:00 Alkaline Phosphatase 92 U/L (38-126) 08/29/16 06:00 Total Creatine Kinase 131 U/L (30-135) 08/26/16 10:22 CK-MB (Mass) 2.71 ng/mL (0.0-3.38) 08/26/16 10:22 Troponin I, Quant < 0.0120 ng/mL (0.00-0.120) 08/26/16 10:22 Total Protein 7.2 g/dL (6.3-8.3) 08/29/16 06:00 Albumin 3.8 g/dL (3.5-5.0) 08/29/16 06:00 Globulin 3.3 gm/dL (2.2-3.9) 08/29/16 06:00 Albumin/Globulin Ratio 1.2 (1.0-2.1) 08/29/16 06:00 Free T4 0.72 ng/dL (0.78-2.19) L 08/26/16 10:22 TSH 3rd Generation 3.53 mIU/L (0.46-4.68) 08/26/16 10:22 Prolactin 14.2 ng/mL (3.0-18.9) 08/27/16 07:52 Urine Color Straw (YELLOW) 08/26/16 11:46 Urine Clarity Clear (Clear) 08/26/16 11:46 Urine pH 6.0 (5.0-8.0) 08/26/16 11:46 Ur Specific [place] 1.010 (1.003-1.030) 08/26/16 11:46 Urine Protein Negative mg/dL (NEGATIVE) 08/26/16 11:46 Urine Glucose (UA) Normal mg/dL (Normal) 08/26/16 11:46 Urine Ketones Negative mg/dL (NEGATIVE) 08/26/16 11:46 Urine Blood Negative (NEGATIVE) 08/26/16 11:46 Urine Nitrate Negative (NEGATIVE) 08/26/16 11:46 Urine Bilirubin Negative (NEGATIVE) 08/26/16 11:46 Urine Urobilinogen Normal mg/dL (0.2-1.0) 08/26/16 11:46 Ur Leukocyte Esterase Neg Andrade/uL (Negative) 08/26/16 11:46 Urine WBC (Auto) 1 /hpf (0-5) 08/26/16 11:46 Urine RBC (Auto) 1 /hpf (0-3) 08/26/16 11:46 Ur Squamous Epith Cells < 1 /hpf (0-5) 08/26/16 11:46 Attending/Attestation - Attestation I have personally seen and examined this patient.: Yes I have fully participated in the care of the patient.: Yes I have reviewed all pertinent clinical information, including history, physical exam and plan: Yes
--- NOTE | 2016-08-30 10:08 | EEG ---
DATE: 08/28/2016 This is a 16-channel electroencephalogram of awake and drowsy adult. During the study, photic stimul ation was performed. Hyperventilation was not performed. The resting electroencephalogram is well organized and formed 30-40 microvolt, 9-11 Hz alpha activiti es seen at parietal and occipital leads. Anteriorly fast activity superimposed with 2-3 Hz delta act ivity seen at frontal and central leads. The photic stimulation did not evoke driving response noted at 2-20 Hz. During the study, neither electroencephalographic paroxysmal activities nor focal slowi ng noted. Junito Cox MD cc: [id number] TT: 08/30/2016 10:07:38 Confirmation # [id number] Dictation # [id number]
== END 2016-08-29 15:20 | disposition home or self-care (01) ==
LOC: C.ER 09:37 → C.9E 11:55 → C.6T 13:54 → OBSVTOIN 08-28 21:17 → INTOOBSV 08-28 21:17
PROVIDERS: ADMIT Internal Medicine Nephrology; ATTEND Internal Medicine Nephrology
DX: R55 Syncope and collapse (principal); J45.909 Unspecified asthma, uncomplicated; R42 Dizziness and giddiness; Z90.49 Acquired absence of other specified parts of digestive tract
CPT/HCPCS: 36415; 70450; 70553; 71010; 80053; 81001; 83735; 84100; 84146; 84439; 84443; 84484; 85025; 85610; 85730; 93005; 93306; 93880; 94640; 95812; 96361; 96372; 96374; 97110; 97116; 97162; 97530; 99285; A9579; G0378; G8978; G8979; J1644; J2765; J7040

== ENCOUNTER 2016-11-13 07:29 | Emergency (ER) | payer MEDICARE ==
[2016-11-13 07:47] VITALS: BMI 26.5
[2016-11-13 07:50] VITALS: RESP 16; O2SAT 98
--- NOTE | 2016-11-13 08:03 | C.PDOC ---
History Of Present Illness 75 y/o female with PMHx of Asthma presents to ED with complaints of chest pain x2 hours ago. Patient describes pain as "sharp" and "feels like electric shots" reoccurring every few seconds. Patient denies taking any medications, N/V/D, SOB , sweats or any other complaints at this time. Time Seen by Provider: 11/13/16 07:58 Chief Complaint (Nursing): Chest Pain History Per: Patient History/Exam Limitations: no limitations, language barrier (daughter tx'ing) Onset/Duration Of Symptoms: Hrs Current Symptoms Are (Timing): Still Present Quality: Sharp, "Pain" Associated Symptoms: denies: Nausea Past Medical History Reviewed: Historical Data, Nursing Documentation, Vital Signs Vital Signs: Last Vital Signs Temp 97.9 F 11/13/16 10:39 Pulse 76 11/13/16 10:39 Resp 16 11/13/16 10:39 BP 134/74 11/13/16 10:39 Pulse Ox 98 11/13/16 10:39 - Medical History PMH: Asthma, Hyperlipidemia, Hypothyroidism, TIA Surgical History: Cholecystectomy Family History: States: Unknown Family Hx - Social History Hx Tobacco Use: No Hx Alcohol Use: No Hx Substance Use: No - Immunization History Hx Tetanus Toxoid Vaccination: No Hx Influenza Vaccination: No Hx Pneumococcal Vaccination: Yes Review Of Systems Constitutional: Negative for: Fever, Chills, Sweats Cardiovascular: Positive for: Chest Pain Respiratory: Negative for: Cough, Shortness of Breath Gastrointestinal: Negative for: Nausea, Vomiting, Diarrhea Genitourinary: Negative for: Dysuria Neurological: Negative for: Weakness, Headache Physical Exam - Physical Exam Appears: Non-toxic, No Acute Distress Skin: Normal Color, Warm Head: Atraumatic, Normacephalic Eye(s): bilateral: Normal Inspection Oral Mucosa: Moist Throat: Normal Cardiovascular: Rhythm Regular Respiratory: No Rales, No Rhonchi, No Wheezing Gastrointestinal/Abdominal: Soft, No Tenderness, No Guarding, No Rebound Extremity: Normal ROM Neurological/Psych: Oriented x3, Normal Speech, Normal Cognition ED Course And Treatment - Laboratory Results Result Diagrams: 11/13/16 08:27 11/13/16 08:27 ECG Rhythm: Sinus Rhythm ECG Interpretation: Normal Rate From EC O2 Sat by Pulse Oximetry: 98 (RA) Pulse Ox Interpretation: Normal - Other Rad CXR Interpretation: IMPRESSION: Elevated right hemidiaphragm. Mild venous congestion. Linear and nodular consolidative markings at the left mid to lower lung zone. Mild bilateral hilar prominence. Medical Decision Making Medical Decision Making: Pt has atypical hx, normal EKG, neg markers, and no indication of PE or TAD This was discussed with pt and daughter We also discussed observation vs prompt op pcp evaluation with stress testing Pt and daughter prefer op f/u Pt is on plavix will not risk addition of asa with low prob cp Plan dc home pcp f/u Disposition - Disposition Referrals: Marcella Smith [Staff Provider] - Disposition: HOME/ ROUTINE Disposition Time: 10:20 Condition: GOOD Additional Instructions: Continue all usual meds Follow up with PCP 1 -2 days Return to the ED for any new or worsening symptoms Instructions: Chest Pain (ED) Print Language: CHILEAN - Clinical Impression Clinical Impression: Chest pain - 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 MD/DO has examined the patient and agrees with the treatment plan. - Scribe Statement The provider has reviewed the documentation as recorded by the Karinaibturner Dunn All medical record entries made by the Johnathan were at my direction and personally dictated by me. I have reviewed the chart and agree that the record accurately reflects my personal performance of the history, physical exam, medical decision making, and the department course for this patient. I have also personally directed, reviewed, and agree with the discharge instructions and disposition.
[2016-11-13 08:33] LABS: BASO # 0.1 K/uL (0.0-0.2); EOS # 0.4 K/uL (0.0-0.7); EOS % 5.6 % (0.0-4.0); HEMATOCRIT 39.2 % (34.0-47.0); LYMPH # 2.1 K/uL (1.0-4.3); LYMPH % 31.2 % (20.0-40.0); MEAN CELL VOLUME 91.9 fL (81.0-99.0); MEAN CORPUSCULAR HEMOGLOBIN 31.1 pg (27.0-31.0); MEAN CORPUSCULAR HGB CONC 33.9 g/dL (33.0-37.0); MEAN PLATELET VOLUME 7.3 fL (7.2-11.7); MONO # 0.6 K/uL (0.0-0.8); MONO % 9.2 % (0.0-10.0); NRBC % 0.1 % (0.0-2.0); RED CELL DISTRIBUTION WIDTH 13.7 % (11.5-14.5); WHITE BLOOD COUNT 6.8 K/uL (4.8-10.8)
[2016-11-13 08:57] LABS: CHLORIDE 103 mmol/L (98-107)
[2016-11-13 08:58] LABS: POTASSIUM 4.5 mmol/L (3.6-5.2); SODIUM 141 mmol/L (132-148)
[2016-11-13 09:00] LABS: ALB/GLOB RATIO 1.2 (1.0-2.1); ALKALINE PHOSPHATASE 84 U/L (38-126); AST/SGOT 32 U/L (14-36); BLOOD UREA NITROGEN 15 mg/dL (7-17); CARBON DIOXIDE 30 mmol/L (22-30); GFR AFRICAN-AMERICAN > 60; GLUCOSE,RANDOM 89 mg/dL (65-105); TOTAL PROTEIN 7.6 g/dL (6.3-8.3)
[2016-11-13 09:01] LABS: ALT/SGPT 25 U/L (9-52); CALCIUM 8.6 mg/dl (8.6-10.4)
--- NOTE | 2016-11-13 09:01 | RAD ---
PROCEDURE: CHEST RADIOGRAPH, 1 VIEW HISTORY: Chest pain COMPARISON: 08/26/2016 FINDINGS: LUNGS: Elevated right hemidiaphragm. Mild venous congestion. Linear and nodular consolidative markings at the left mid to lower lung zone. Mild bilateral hilar prominence. PLEURA: No pneumothorax or pleural fluid seen. CARDIOVASCULAR: Normal. OSSEOUS STRUCTURES: Degenerative changes in the spine and shoulders. Suggestion of a deformity of the right proximal humerus. VISUALIZED UPPER ABDOMEN: Normal. OTHER FINDINGS: None. IMPRESSION: Elevated right hemidiaphragm. Mild venous congestion. Linear and nodular consolidative markings at the left mid to lower lung zone. Mild bilateral hilar prominence.
[2016-11-13 09:40] LABS: RBC URINE 4 /hpf (0-3); URINE BACTERIA FEW (<OCC); URINE BILIRUBIN NEGATIVE (NEGATIVE); URINE BLOOD NEGATIVE (NEGATIVE); URINE COLOR Yellow (YELLOW); URINE GLUCOSE (UA) NORMAL (Normal); URINE KETONE NEGATIVE (NEGATIVE); URINE LEUKOCYTE ESTERASE 3+ Leu/uL (Negative); URINE PROTEIN NEGATIVE (NEGATIVE); URINE UROBILINOGEN NORMAL mg/dL (0.2-1.0); WBC URINE 54 /hpf (0-5)
[2016-11-13 10:41] VITALS: BP 134/74; PULSE 76; TEMP 97.9
--- NOTE | 2016-11-15 12:05 | CARD ---
APPROVED REPORT EKG Measurement Heart [id number] NC 194P-2 [id number] <Conclusion> Normal sinus rhythm Normal ECG
== END 2016-11-13 10:49 | disposition home or self-care (01) ==
LOC: C.ER 07:29
DX: R07.89 Other chest pain (principal)
CPT/HCPCS: 71010; 80053; 81001; 84484; 85025; 85610; 85730; 96374; 99285; J1885